=== PATIENT | male | born 1955 | race Two or more races ===

== ENCOUNTER 2019-10-25 07:55 | Day surgery (SDC) | payer MEDICARE, BC ==
[~2019-10-25] VITALS: Ht 181.6 cm; Wt 83.5 kg
[2019-10-25] VITALS (10 sets, daily range): BP systolic 109–128; BP diastolic 70–83
[~2019-10-25 07:55] MED LIST: ATORVASTATIN CA40 MG ORAL; CALCIUM500 M3 PO; COQ1050 MG PO; FLOMAX0.4 MG ORAL; METFORMIN HCL500 M1 ORAL; VITAMIN B COMP1 EAC2 ORAL; VITAMIN C500 M1 ORAL; VITAMIN D310 MCG ORAL
[2019-10-25 09:29] LABS: ANION GAP 8 mmol/L (5-15); BLOOD UREA NITROGEN 12 mg/dL (7-18); CALCIUM 8.4 MG/DL (8.5-10.1); CARBON DIOXIDE 27 MMOL/L (21-32); CHLORIDE 105 MMOL/L (98-107); POTASSIUM 4.7 MMOL/L (3.5-5.1); SODIUM 139 MMOL/L (136-145)
--- NOTE | 2019-10-25 09:43 | Pre-Procedure Note/Attestation ---
Pre-Procedure Note/Attestation Complete Prior to Procedure Planned Procedure: left - Removal of cataract and placement of intraocular lens left eye Procedure Narrative: Removal of cataract and placement of intraocular lens, left eye Indications for Procedure Pre-Operative Diagnosis: Cataract, combined, left eye Attestation I attest that I discussed the nature of the procedure; its benefits; risks and complications; and alternatives (and the risks and benefits of such alternatives ), prior to the procedure, with the patient (or the patient's legal client representative). I attest that, if there was a reasonable possibility of needing a blood transfusion, the patient (or the patient's legal client representative) was given the [place] [employer] standardized written summary, pursuant to the [place] Blood Safety Act ([place] Health and Safety Code # 1645, as amended). I attest that I re-evaluated the patient just prior to the surgery and that there has been no change in the patient's H&P, except as documented below: Walker Dunn MD Oct 25, 2019 09:43
[2019-10-25] MEDS ORDERED: BSS 500ml btl ONE (09:59)
[2019-10-25] MEDS ORDERED: Sodium Hyaluronate 10 mg/ml 0.85ml ONE (09:59)
[2019-10-25] MEDS ORDERED: Povidone-Iodine 5% opth solution ONE (09:59)
[2019-10-25] MEDS ORDERED: Polysporin Opth Oint 3.5gm ONE (09:59)
[2019-10-25] MEDS ORDERED: Lidocaine 1% MPF 10mg/ml 5ml ONE (09:59)
[2019-10-25] MEDS ORDERED: Tetracaine 0.5% Opth 4ml Soln ONE (09:59)
[2019-10-25] MEDS ORDERED: prednisoLONE acetate 1% Opth Susp 1ml ONE (09:59)
[2019-10-25] MEDS ORDERED: EPINEPHrine 1mg/1ml Amp ONE (09:59)
[2019-10-25] MEDS ORDERED: BSS 15ml BTL ONE (09:59)
[2019-10-25] MEDS: Tobradex Opth Susp 2.5ml LEFT EYE SCH ×3 (10:05→10:16)
[2019-10-25] MEDS: Cyclopentolate 1% Opth Sol 2ml LEFT EYE SCH ×3 (10:05→10:17)
[2019-10-25] MEDS: Phenylephrine 10% Opth Soln 5ml LEFT EYE SCH ×3 (10:05→10:17)
[2019-10-25] MEDS: Akten 3.5% 1ml Btl LEFT EYE SCH ×3 (10:05→10:17)
[2019-10-25] MEDS: Tropicamide 1% Opth 15ml Soln LEFT EYE SCH ×3 (10:05→10:16)
[2019-10-25] MEDS: Ciprofloxacin Opth Soln 5ml LEFT EYE SCH ×3 (10:06→10:17)
[2019-10-25] MEDS ORDERED: Midazolam 2mg/2ml Inj ONE (10:26)
[2019-10-25] MEDS ORDERED: LR 1000ml 1,000 ML IVLG SCH (10:59)
--- NOTE | 2019-10-25 10:59 | Anethesia Preoperative Eval ---
Anesthesia Pre-op PMH/ROS General Date of Evaluation: Oct 25, 2019 Time of Evaluation: 10:32 Anesthesiologist: Jorgito ASA Score: ASA 2 Mallampati Score Class I : Soft palate, uvula, fauces, pillars visible Class II: Soft palate, uvula, fauces visible Class III: Soft palate, base of uvula visible Class IV: Only hard plate visible Mallampati Classification: Class II Surgeon: Mona Diagnosis: L eye cataract Surgical Procedure: Cataract extraction Anesthesia History: none Family History: no anesthesia problems Allergies: Coded Allergies: PENICILLINS (Verified Allergy, Severe, Hives, 10/25/19) Medications: see eMAR Patient NPO?: Yes Past Medical History Cardiovascular: Reports: CAD - Norecent CP; Denies: HTN, ND, valve dz, arrhythmia, other Pulmonary: Reports: FERMIN; Denies: asthma, COPD, other Gastrointestinal/Genitourinary: Reports: GERD, other - BPH; Denies: CRI, ESRD Neurologic/Psychiatric: Reports: depression/anxiety; Denies: dementia, CVA, TIA, other Endocrine: Reports: DM - borderline; Denies: hypothyroidism, steroids, other HEENT: Reports: cataract (L), cataract (R) Hematology/Immune: Denies: anemia, DVT, bleeding disorder, other Musculoskeletal/Integumentary: Denies: OA, RA, DJD, DDD, edema, other PMH Narrative: as above PSxH Narrative: Septoplasty, Coronary angiogram Anesthesia Pre-op Phys. Exam Physician Exam Last Vital Signs Date Time Temp Pulse Resp B/P (MAP) Pulse Ox O2 Delivery O2 Flow Rate FiO2 10/25/19 08:30 Room Air 10/25/19 08:27 97.2 56 18 125/83 97 Constitutional: NAD Neurologic: CN 2-12 intact Cardiovascular: RRR, no M/R/G Respiratory: CTA Gastrointestinal: S/NT/ND Airway Exam Mallampati Score: Class II MO: full Neck: flexible ROM: full Teeth: intact Dentures: no upper, no lower Anesthesia Pre-op A/P Labs Chemistry Test 10/25/19 09:10 Sodium Level 139 MMOL/L (136-145) Potassium Level 4.7 MMOL/L (3.5-5.1) Chloride Level 105 MMOL/L (98-107) Carbon Dioxide Level 27 MMOL/L (21-32) Anion Gap 8 mmol/L (5-15) Blood Urea Nitrogen 12 mg/dL (7-18) Creatinine 1.0 MG/DL (0.55-1.30) Estimat Glomerular Filtration Rate > 60 mL/min (>60) Glucose Level 106 MG/DL (74-106) Calcium Level 8.4 MG/DL (8.5-10.1) L Studies Pre-op Studies: EKG - NSR Risk Assessment & Plan Assessment: ASA 2 Plan: MAC Status Change Before Surgery: Charly Gilman MD Oct 25, 2019 10:59
[2019-10-25] MEDS ORDERED: LR 1000ml ONE (11:00)
[2019-10-25] MEDS ORDERED: NS Irrig 1000ml ONE (11:00)
[2019-10-25] MEDS ORDERED: fentaNYL 100 mcg/2 mL IV ONE (11:00)
[2019-10-25] MEDS ORDERED: Sterile Water Irrig 1000ml IRRIG ONE (11:00)
[2019-10-25] MEDS ORDERED: fentaNYL 100 mcg/2 mL IV PRN (11:00)
--- NOTE | 2019-10-25 11:35 | Discharge Instructions ---
Discharge Instructions Discharge Instructions Follow Up Orders Wear eye shield at all times except to place medications Continue preoperative eye drops EXCEPT ATROPINE EYE DROPS. DO NOT USE ATROPINE EYE DROPS Followup tomorrow in Dr Dunn's office Return to Work/School on: Oct 25, 2019 For Congestive Heart Failure Reminder Report to your physician any weight gain of 5 pounds or more in one week. Walker Dunn MD Oct 25, 2019 11:35
--- NOTE | 2019-10-25 11:37 | Brief Operative Note ---
Immediate Post Operative Note Operative Note Pre-op Diagnosis: Cataract, combined, left eye Miosis left eye Procedure: Phaco PC IOL OS Use of Malygun ring (7.0) Post-op Diagnosis: same as pre-op Surgeon: Elva Dunn MD Anesthesiologist: Dr Bull Anesthesia: local, MAC Specimen: none Complications: none Fluids: See chart Implant(s) used?: Yes - tecnis ZCB00 12.0 Walker Dunn MD Oct 25, 2019 11:37
--- NOTE | 2019-10-25 11:37 | Immediate Post-Op Evaluation ---
Immediate Post-Op Evalulation Immediate Post-Op Evalulation Procedure: L eye cataract extruction with IOL Date of Evaluation: Oct 25, 2019 Time of Evaluation: 11:36 IV Fluids: 300 Blood Products: none Estimated Blood Loss: none Urinary Output: none Blood Pressure Systolic: 110 Blood Pressure Diastolic: 68 Pulse Rate: 58 Respiratory Rate: 20 O2 Sat by Pulse Oximetry: 99 Temperature (Fahrenheit): 97.6 Pain Score (1-10): 1 Nausea: No Vomiting: No Complications none Patient Status: awake, patent, none Hydration Status: adequate Charly Bull MD Oct 25, 2019 11:37
--- NOTE | 2019-10-25 13:34 | 48 Hour Post Anesthesia Eval ---
Post Anesthesia Evaluation Procedure: L eye cataract extruction with IOL Date of Evaluation: Oct 25, 2019 Time of Evaluation: 13:33 Blood Pressure Systolic: 128 0: 72 Pulse Rate: 68 Respiratory Rate: 18 Temperature (Fahrenheit): 97.8 O2 Sat by Pulse Oximetry: 98 Airway: patent Nausea: No Vomiting: No Pain Intensity: 1 Hydration Status: adequate Cardiopulmonary Status: stable Mental Status/LOC: patient returned to baseline Follow-up Care/Observations: n/a Post-Anesthesia Complications: none Follow-up care needed: ready to discharge Charly Bull MD Oct 25, 2019 13:34
--- NOTE | 2019-10-25 16:14 | Operative Note - Dictated ---
DATE OF OPERATION: 10/25/2019 SURGEON: Walker Dunn M.D. INTERNATIONAL LOGISTICS COORDINATOR: None. ANESTHESIOLOGIST: Charly Bull M.D. ANESTHESIA: Local/standby/monitored anesthesia care. PREOPERATIVE DIAGNOSES: 1. Combined cataract, left eye. 2. Myosis, left eye. POSTOPERATIVE DIAGNOSES: 1. Combined cataract, left eye. 2. Myosis, left eye. PROCEDURE: 1. Phacoemulsification of cataract, left eye. 2. Placement of posterior chamber intraocular lens, left eye (model Tecnis, ZCB00, power 12.0). 3. Use of Malyugin ring, left eye (7.0 mm). SPECIMENS: None. COMPLICATIONS: None. INDICATIONS FOR SURGERY: The patient has had the painless progressive decrease in the visual acuity in the left eye secondary to cataract. The patient understands the risks of surgery including infection, bleeding, need for further surgery, loss of vision, no improvement in vision, loss of the eye, loss of life, glaucoma, retinal detachment, understands these risks and elects to proceed with surgery. FINDINGS: The patient had a very dense central nuclear cataract, at least +3, and also still miotic pupil despite using 1% atropine preoperatively. OPERATIVE NOTE: After informed consent was obtained, the patient was brought into the operative room, placed in supine position. Cardiac and respiratory monitors were attached. A time-out was performed. All criteria were met and everyone in the room agreed. The left eye was then draped and prepped in the sterile manner for ocular surgery. A lid speculum was placed in the eye. 1% lidocaine, preservative-free, was injected at the approximate 2 o'clock limbus. Conjunctival peritomy from approximately 2 o'clock to 3 o'clock was made and dissected posteriorly. Hemostasis was maintained with bipolar cautery. A 2.6 mm limbal incision was made and centered at approximately 2:30 and dissected anteriorly. A paracentesis was made at approximately 5:30 and Shugarcaine was injected into the anterior chamber, followed by Healon. The anterior chamber was then entered using a 2.6 mm keratome through the limbal incision. A 7.0 Malyugin ring was injected into the anterior chamber and hooked onto the iris at 4 points. An anterior capsulorrhexis was then performed. Hydrodissection and hydrodelineation of the lens was then performed. The lens was then phacoemulsified using divide and conquer four-quadrant technique. Residual cortical material was then aspirated. Healon was injected into the anterior chamber and capsular bag. The lens was taken from its package, placed into the cartridge, and the tip of the cartridge was placed through the limbal incision. The lens was injected into the capsular bag and centered nicely with a Sinskey hook. Healon was then injected into the anterior chamber and the Malyugin ring was then removed from the anterior chamber without complications. Healon was then aspirated from the anterior chamber and capsular bag. One 10-0 nylon interrupted suture was then placed through the limbal incision and the knot was rotated and buried. Care was taken during the entire procedure to not touch the endothelium. The wounds were hydrated and closed, and the wounds were checked and found to be watertight. The conjunctiva was then closed with forceps cautery. Note: The pupil did not dilate enough with the atropine and that was the reason why the Malyugin ring was needed in order to visualize the capsule. After the lid speculum and drapes were removed from the eye, drops of Pred Forte and ciprofloxacin were applied to the eye, followed by Maxitrol ointment, then a shield. The patient tolerated the procedure well and left the operating room awake, alert, and in stable condition. Walker Dunn M.D. DR: AMAIRANI JOB#: [id number] CC:
== END 2019-10-25 13:00 | disposition home or self-care (01) ==
LOC: SUR 07:55
DX: H25.12 Age-related nuclear cataract, left eye (principal); H57.03 Miosis; I25.10 Atherosclerotic heart disease of native coronary artery without angina pectoris; Z88.0 Allergy status to penicillin; G47.33 Obstructive sleep apnea (adult) (pediatric); K21.9 Gastro-esophageal reflux disease without esophagitis; F32.9 Major depressive disorder, single episode, unspecified; F41.9 Anxiety disorder, unspecified; E11.9 Type 2 diabetes mellitus without complications
CPT/HCPCS: 36415; 66982; 80048; 94003; J0171; J1100; J2250; J2704; J3010; J7120; V2632; 94150